=== PATIENT | female | born 1975 | race Caucasian/White ===

== ENCOUNTER 2018-12-24 16:10 | Emergency (ER) | payer OTHER, MEDICAID ==
[~2018-12-24] VITALS: Ht 167.6 cm; Wt 77.1 kg
[~2018-12-24 16:10] MED LIST: XANAX 1 MG TABLE1 MG PO
[2018-12-24 16:37] LABS: ABSOLUTE BASOPHILS 0.1 thou/uL (0.0-0.2); ABSOLUTE EOSINOPHILS 0.3 thou/uL (0.0-0.7); ABSOLUTE LYMPHOCYTES 3.6 thou/uL (0.8-5.3); ABSOLUTE MONOCYTES 0.8 thou/uL (0.0-1.2); ABSOLUTE NEUTROPHILS 7.5 thou/uL (1.6-8.1); BASOPHILS 0.9 %; EOSINOPHILS 2.1 %; HEMATOCRIT 48.9 % (37.0-47.0); HEMOGLOBIN 16.5 gm/dL (12.0-15.0); LYMPHOCYTES 29.1 %; MCH 30.3 pg (26.0-34.0); MCHC 33.7 g/dL (28.0-37.0); MCV 89.9 fL (80.0-100.0); MONOCYTES 6.7 %; MPV 8.1 fl. (7.2-11.1); NUCLEATED RBCS 0 /100WBC; PLATELET COUNT* 399 thou/uL (150-400); POLYS 61.2 %; RBC 5.44 mil/uL (4.20-5.00); RDW-CV 14.2 % (10.5-14.5); WBC 12.2 thou/uL (4.0-11.0)
[2018-12-24 16:46] LABS: CALCIUM 9.1 mg/dL (8.5-10.1); CREATININE 0.9 mg/dL (0.6-1.3); POTASSIUM 3.7 mmol/L (3.5-5.1)
[2018-12-24 16:50] LABS: ALCOHOL < 10 mg/dL (<10); SALICYLATE 6.4 mg/dL (2.8-20.0)
[2018-12-24 16:51] LABS: ALBUMIN 3.5 g/dL (3.4-5.0); TOTAL BILIRUBIN 0.2 mg/dL (<0.1-1.0); TOTAL PROTEIN 7.3 g/dL (6.4-8.2)
[2018-12-24 16:52] LABS: ACETAMINOPHEN < 2 ug/mL (10-30)
[2018-12-24 16:54] LABS: URINE BILIRUBIN NEGATIVE (Negative); URINE BLOOD NEGATIVE (Negative); URINE CLARITY CLEAR; URINE COLOR YELLOW; URINE GLUCOSE-RANDOM NEGATIVE (Negative); URINE KETONES NEGATIVE (Negative); URINE PROTEIN NEGATIVE (Negative); URINE UROBILINOGEN 0.2 E.U./dl (0.2-1.0)
[2018-12-24 16:55] LABS: URINE LEUKOCYTES-REFLEX 3+ (Negative); URINE NITRITE-REFLEX POSITIVE (Negative)
[2018-12-24 16:59] LABS: AMP/METHAMP Negative (Negative); BARBITURATES Negative (Negative); BENZODIAZEPINES Negative (Negative); COCAINE Negative (Negative); METHADONE Negative (Negative); OPIATES Negative (Negative); PCP Negative (Negative); THC POSITIVE (Negative)
[2018-12-24] MEDS ORDERED: BACTRIM DS TAB1 EACH PO (17:10)
[2018-12-24 17:22] LABS: SQUAMOUS >10 Many /LPF (0-3)
[2018-12-24 17:23] LABS: BACTERIA-REFLEX >30 Many /HPF (None Seen)
[2018-12-24 17:24] LABS: CASTS None Seen /LPF (None Seen); CRYSTALS None Seen /LPF (None Seen); MUCUS None Seen strn/LPF (None Seen); URINE RBC None Seen /HPF (0-2)
[2018-12-25 20:00] VITALS: BP 112/84
== END 2018-12-25 19:40 | disposition short-term general hospital (02) ==
LOC: M.ERS 16:10
PROVIDERS: Emergency Medicine Emergency Medical Services
DX: F32.9 Major depressive disorder, single episode, unspecified (principal); R45.851 Suicidal ideations; F29 Unspecified psychosis not due to a substance or known physiological condition; F41.0 Panic disorder [episodic paroxysmal anxiety]; F17.210 Nicotine dependence, cigarettes, uncomplicated

== ENCOUNTER 2019-10-07 06:57 | Emergency (ER) | payer OTHER, MEDICAID ==
[~2019-10-07] VITALS: Ht 165.1 cm; Wt 72.6 kg
[~2019-10-07 06:57] MED LIST changes: +BACTRIM DS TAB1 EACH PO
[2019-10-07] MEDS ORDERED: BENZTROPINE MES1 MG PO (07:02)
[2019-10-07] MEDS ORDERED: RISPERDAL2 MG PO (07:02)
[2019-10-07] MEDS ORDERED: ZOLOFT100 MG PO (07:02)
[2019-10-07 07:29] LABS: URINE CLARITY CLEAR; URINE COLOR YELLOW; URINE GLUCOSE-RANDOM NEGATIVE (Negative); URINE KETONES NEGATIVE (Negative); URINE LEUKOCYTES-REFLEX NEGATIVE (Negative); URINE NITRITE-REFLEX NEGATIVE (Negative); URINE PROTEIN TRACE (Negative); URINE SPECIFIC GRAVITY 1.025 (1.005-1.030); URINE UROBILINOGEN 0.2 E.U./dl (0.2-1.0)
[2019-10-07 07:32] LABS: URINE BILIRUBIN 1+ (Negative); URINE BLOOD NEGATIVEN (Negative)
[2019-10-07 07:58] LABS: ABSOLUTE BASOPHILS 0.1 thou/uL (0.0-0.2); ABSOLUTE EOSINOPHILS 0.1 thou/uL (0.0-0.7); ABSOLUTE LYMPHOCYTES 2.3 thou/uL (0.8-5.3); BASOPHILS 1.3 %; EOSINOPHILS 1.2 %; HEMATOCRIT 41.8 % (37.0-47.0); HEMOGLOBIN 14.3 gm/dL (12.0-15.0); LYMPHOCYTES 21.7 %; MCH 29.8 pg (26.0-34.0); MCHC 34.1 g/dL (28.0-37.0); MCV 87.3 fL (80.0-100.0); MONOCYTES 9.1 %; NUCLEATED RBCS 0 /100WBC; PLATELET COUNT* 436 thou/uL (150-400); POLYS 66.7 %; RBC 4.79 mil/uL (4.20-5.00); RDW-CV 13.6 % (10.5-14.5); WBC 10.5 thou/uL (4.0-11.0)
[2019-10-07 08:06] LABS: CREATININE 0.8 mg/dL (0.6-1.3); POTASSIUM 3.6 mmol/L (3.5-5.1)
[2019-10-07 08:11] LABS: ALBUMIN 2.9 g/dL (3.4-5.0); TOTAL BILIRUBIN 0.3 mg/dL (<0.1-1.0); TOTAL PROTEIN 7.1 g/dL (6.4-8.2)
[2019-10-07] MEDS ORDERED: ZOFRAN ODT4 MG SUBLING (09:39)
[2019-10-07] MEDS ORDERED: NORCO 5-325 TA1 EAC1 PO (09:39)
[2019-10-07 09:53] VITALS: BP 115/81
--- NOTE | 2019-10-08 10:12 | EKG ---
[place] [address] ELECTROCARDIOGRAM REPORT Name: MELI WANG Room: [facility]#: [id number] Admission: 10/07/19 Attend Phys: Discharge: 10/07/19 Date of : 71 Report #: [id number] THIS REPORT FOR: //name// [facility] ED Test Date: 2019-10-07 Test Time: 07:35:11 Pat Name: MELI WANG Department: Room: Gender: F Client Sales And Service Officer: MARION : 1975 Requested By: Lincoln Mcnulty Order Number: [id number] MD: Tima Mcmahon Measurements Intervals [place] Rate: 91 P: 56 MA: 220 QRS: 36 QRSD: 74 T: 64 QT: 341 QTc: 420 Interpretive Statements Sinus rhythm Prolonged MA interval Low voltage, precordial leads Compared to ECG 04/02/2016 19:42:59 First degree AV block now present Ectopic atrial rhythm no longer present Electronically Signed On 10-08-2019 10:12:03 CLAIMS COORDINATOR by Tima Mcmahon [email or web address] <ELECTRONICALLY SIGNED> By: Tima Mcmahon MD, [facility] 10/08/19 [id number] [id number] Tima Mcmahon MD, [facility] /EPI
== END 2019-10-07 09:53 | disposition home or self-care (01) ==
LOC: M.ERS 06:57
PROVIDERS: Family Medicine
DX: D39.12 Neoplasm of uncertain behavior of left ovary (principal); D39.11 Neoplasm of uncertain behavior of right ovary; R11.2 Nausea with vomiting, unspecified; F41.0 Panic disorder [episodic paroxysmal anxiety]; F29 Unspecified psychosis not due to a substance or known physiological condition; F20.9 Schizophrenia, unspecified; F17.210 Nicotine dependence, cigarettes, uncomplicated; Z98.890 Other specified postprocedural states